=== PATIENT | female | born 1995 | race American Indian/Alaskan Native ===

== ENCOUNTER 2020-04-12 16:24 | Inpatient (IN) | payer MEDICAID, OTHER ==
[2020-04-12 17:17] LABS: Bilirubin,Urine NEG (Negative); Blood,Urine NEG (Negative); Color,Urine Yellow (Yellow); Mucus,Urine 1+ /HPF; Urobilinogen,Urine < 2.0 mg/dL (<2.0)
[2020-04-12 17:21] LABS: HCG Qualitative,Urine Negative (Negative)
[2020-04-12] MEDS ORDERED: ONDANSETRON 4 MG/2 ML INJ IV STA (18:57)
[2020-04-12] MEDS ORDERED: SODIUM CHLORIDE 0.9% 1000 ML 1,000 ML IV ONE (18:57)
[2020-04-12] MEDS ORDERED: MORPHINE 4 MG/1 ML INJ IV STA ×2 (18:57→21:50)
--- NOTE | 2020-04-12 19:03 | Emergency Department Report ---
ED Abdominal Pain HPI - General Chief Complaint: Abdominal Pain Stated Complaint: ABD SHARP PAIN Time Seen by Provider: 04/12/20 18:36 Source: patient Mode of arrival: Wheelchair Limitations: No Limitations - History of Present Illness MD Complaint: abdominal pain Location: RUQ, RLQ Radiation: none, RUQ, RLQ Severity: mild Severity scale (0 -10): 10 Consistency: constant Improves With: nothing Worsens With: nothing Associated Symptoms: nausea. denies: vomiting, diarrhea, constipation, hematuria, anorexia - Related Data Allergies Allergy/AdvReac Type Severity Reaction Status Date / Time No Known Allergies Allergy Unverified 04/12/20 16:37 ED Review of Systems ROS: Stated complaint: ABD SHARP PAIN Other details as noted in HPI Comment: All other systems reviewed and negative ED Past Medical Hx - Past Medical History Previous Medical History?: No - Surgical History Past Surgical History?: No - Social History Smoking Status: Current Every Day Smoker ED Physical Exam - General Limitations: No Limitations General appearance: alert, in no apparent distress - Head Head exam: Present: atraumatic, normocephalic - Eye Eye exam: Present: normal appearance - ENT ENT exam: Present: mucous membranes moist - Neck Neck exam: Present: normal inspection - Respiratory Respiratory exam: Present: normal lung sounds bilaterally. Absent: respiratory distress - Cardiovascular Cardiovascular Exam: Present: regular rate, normal rhythm. Absent: systolic murmur, diastolic murmur, rubs, gallop - GI/Abdominal GI/Abdominal exam: Present: soft, tenderness (There is still tenderness to the right lower quadrant and into the right upper quadrant with palpation. That the abdomen is soft. No distention noted. Bowel sounds positive.), normal bowel sounds. Absent: rebound, rigid, hyperactive bowel sounds, hypoactive bowel sounds, organomegaly, mass - Extremities Exam Extremities exam: Present: normal inspection, full ROM, normal capillary refill - Back Exam Back exam: Present: normal inspection. Absent: CVA tenderness (R), CVA tenderness (L) - Neurological Exam Neurological exam: Present: alert, oriented X3, CN II-XII intact, normal gait - Psychiatric Psychiatric exam: Present: normal affect, normal mood. Absent: anxious, flat affect - Skin Skin exam: Present: warm, dry, intact, normal color. Absent: rash, cyanosis, diaphoretic, erythema ED Course Vital Signs 04/12/20 16:39 Temperature 98.1 F Pulse Rate 96 H Respiratory 22 Rate Blood Pressure 123/77 [Left] O2 Sat by Pulse 100 Oximetry ED Medical Decision Making - Lab Data Result diagrams: 04/12/20 18:55 04/12/20 18:55 - Radiology Data Radiology results: report reviewed Referring Physician:HANNAH COWANPatient Name:KVNG RUDDPatient ID:[id number] of :[id number]:FemaleAccession:[id number] Date:5576-11-57Evizwl Status:Finalized Findings [facility] [address] [id number] Cat Scan Report Signed Patient: KVNG RUDD MR#: [id number] [birth year] : 1995 Acct:[id number] Age/Sex: 25 / F ADM Date: 04/12/20 Loc: ED Attending Dr: Ordering Physician: MAULIK SEWELL Date of Service: 04/12/20 Procedure(s): CT abdomen pelvis wo con Accession Number(s): [id number] cc: MAULIK SEWELL CT OF THE ABDOMEN AND PELVIS WITHOUT CONTRAST INDICATION / CLINICAL INFORMATION: Right lower quadrant pain. TECHNIQUE: All CT scans at this location are performed using CT dose reduction for ALARA by means of automated exposure control. COMPARISON: None available. FINDINGS: ABDOMEN: The liver, spleen, gallbladder, bile ducts, pancreas, adrenal glands and left kidney demonstrate no significant abnormality. There is a 1 mm nonobstructive calculus in the right mid kidney. There is no evidence of bowel obstruction, wall thickening or free air. No adenopathy is identified. There is mild broad-based diastases of the rectus sheath centered at the umbilicus. PELVIS: The appendix is mildly dilated and thick-walled. There is inflammation in the periappendiceal fat. The appendix measures approximately 1 cm transverse. I do not identify an appendicolith. There is no evidence of bowel obstruction, free air or abscess. The distal ureters and urinary bladder are normal. The uterus and adnexal regions are unremarkable. Minimal free fluid in the right cul-de-sac is nonspecific. There is no evidence of diverticulitis. No acute osseous abnormality is seen. IMPRESSION: 1. Acute, uncomplicated appendicitis. 2. Tiny nonobstructive right renal calculus. Signer Name: Harjinder Schilling MD Signed: 04/12/2020 7:39 PM Workstation Name: [id number] Transcribed By: RT Dictated By: Harjinder Schilling MD Electronically Authenticated By: Harjinder Schilling MD Signed Date/Time: 04/12/201938 DD/ 34 TD/TT: - Medical Decision Making This 25-year-old obese -[place] female presents emergency department wit h abdominal pain which appears to be secondary to appendicitis. A CT scan was performed to evaluate the cause of pain and discovered an uncomplicated appendicitis which will require surgical intervention. Her white count is 24.2 and associated with left lower quadrant pain which headache did have some improvement with morphine. She has remained afebrile throughout her hospital visit. No other life threatening processes have been discussed with Dr. Townsend of general surgery who plans to correct this appendiceal issue in the morning. The meantime we will continue with the Zosyn every 6 3.3 or every 8 at 4.5 in conjunction with pain control. We will admit the patient to the hospitalist in the meantime. I discussed the findings with Ms. Rudd and she expressed a clear understanding of the current assessment and the need for admission and surgical intervention. Critical care attestation.: If time is entered above; I have spent that time in minutes in the direct care of this critically ill patient, excluding procedure time. ED Disposition Clinical Impression: Appendicitis Disposition: OP ADMIT IP TO THIS HOSP Is pt being admited?: Yes Does the pt Need Aspirin: No Condition: Stable
--- NOTE | 2020-04-12 19:44 | Cat Scan Report ---
CT OF THE ABDOMEN AND PELVIS WITHOUT CONTRAST INDICATION / CLINICAL INFORMATION: Right lower quadrant pain. TECHNIQUE: All CT scans at this location are performed using CT dose reduction for ALARA by means of automated e xposure control. COMPARISON: None available. FINDINGS: ABDOMEN: The liver, spleen, gallbladder, bile ducts, pancreas, adrenal glands and left kidney demonst rate no significant abnormality. There is a 1 mm nonobstructive calculus in the right mid kidney. The re is no evidence of bowel obstruction, wall thickening or free air. No adenopathy is identified. The re is mild broad-based diastases of the rectus sheath centered at the umbilicus. PELVIS: The appendix is mildly dilated and thick-walled. There is inflammation in the periappendiceal fat. The appendix measures approximately 1 cm transverse. I do not identify an appendicolith. There is no evidence of bowel obstruction, free air or abscess. The distal ureters and urinary bladder are normal. The uterus and adnexal regions are unremarkable. M inimal free fluid in the right cul-de-sac is nonspecific. There is no evidence of diverticulitis. No acute osseous abnormality is seen. IMPRESSION: 1. Acute, uncomplicated appendicitis. 2. Tiny nonobstructive right renal calculus. Signer Name: Harjinder Schilling MD Signed: 04/12/2020 7:39 PM Workstation Name: [id number]
[2020-04-12 19:45] LABS: Mean Corpuscular HGB Conc 30 % (30-34); Platelet Count 407 K/mm3 (140-440); Red Blood Count 4.52 M/mm3 (3.65-5.03); Red Cell Distribution Width 17.1 % (13.2-15.2)
[2020-04-12 19:52] LABS: Alanine Aminotransferase 15 units/L (7-56); Albumin 4.6 g/dL (3.9-5); Blood Urea Nitrogen 12 mg/dL (7-17); Calcium 9.5 mg/dL (8.4-10.2); Hemolysis Index 6
[2020-04-12 19:54] LABS: Hematocrit 29.2 % (30.3-42.9); Hemoglobin 8.6 gm/dl (10.1-14.3); Mean Corpuscular Volume 65 fl (79-97)
[2020-04-12 19:57] LABS: BUN/Creatinine Ratio 17; Bilirubin,Direct < 0.2 mg/dL (0-0.2)
[2020-04-12] MEDS ORDERED: PIPERACILLIN/TAZOBACTAM 3.375 3.375 GM/50 ML BAG IV STA (21:15)
[2020-04-12] MEDS ORDERED: ACETAMINOPHEN 650 MG RECT SUPP PR PRN (22:31)
[2020-04-12] MEDS ORDERED: LACTATED RINGERS 1,000 ML IV SCH (23:00)
[2020-04-13 01:10] LABS: Anisocytosis 1+; Band Neutrophils # (Manual) 0.2 K/mm3; Basophils % (Manual) 0 % (0.0-1.8); Eosinophils % (Manual) 0 % (0.0-4.3); Hypochromasia 1+; Total Cells Counted 100
[2020-04-13 01:11] LABS: Platelet Estimate Consistent w Auto
--- NOTE | 2020-04-13 02:53 | History and Physical Report ---
History of Present Illness Date of examination: 04/12/20 Date of admission: 04/12/20 22:23 Chief complaint: Abdominal Pain History of present illness: 25 year old female presenting with right upper and lower quadrant abdominal pain going on for 24 to 36 hours, pain also radiates to the left lower abdominal quadrant and is associated with chills, nausea and vomitng. but no fever, shortness of breath, diarrhea or constipation. Past History Past Medical History: other (GESTATIONAL DIABETES MELLITUS) Past Surgical History: Social history: no significant social history Family history: no significant family history Medications and Allergies Allergies Allergy/AdvReac Type Severity Reaction Status Date / Time No Known Allergies Allergy Verified 04/12/20 22:36 Active Meds: Active Medications Acetaminophen (Tylenol) 650 mg MD Q4H PRN PRN Reason: Fever >101 Lactated Ringer's (Lactated Ringers) 1,000 mls @ 100 mls/hr IV DIRECT ARNEL Last Admin: 04/13/20 00:48 Dose: 100 mls/hr Documented by: Piperacillin Sod/Tazobactam Sod (Zosyn/Ns 4.5gm/100ml) 4.5 gm in 100 mls @ 200 mls/hr IV Q8HR ARNEL; Protocol Morphine Sulfate (Morphine) 2 mg IV Q3H PRN PRN Reason: Pain, Moderate (4-6) Ondansetron HCl (Zofran) 4 mg IV Q6H PRN PRN Reason: Nausea And Vomiting Review of Systems Constitutional: chills, no weight loss, no weight gain, no fever, no sweats, no night sweats, no anorexia, no fatigue, no weakness, no malaise, no lethargy Eyes: bilateral: other (NO BILATERAL EYE ) Ears, nose, mouth and throat: headache, no ear pain Breasts: deferred Cardiovascular: no chest pain, no lightheadedness, no shortness of breath Respiratory: no cough, no shortness of breath, no dyspnea on exertion Gastrointestinal: abdominal pain, nausea, vomiting, no diarrhea, no constip ation, no change in bowel habits, no hematemesis, no coffee ground emesis, no melena, no hematochezia, no loss of appetite, no early satiety, no heartburn, no indigestion, no belching, no excessive gas, no jaundice, no dyspepsia/bloating, no early satiety Genitourinary Female: no dysuria, no urinary frequency, no urgency Rectal: no pain Integumentary: no rash, no pruritis, no redness, no sores, no wounds Neurological: no numbness, no seizures, no syncope, no tremors, no vertigo, no headaches, no confusion Psychiatric: no anxiety, no depression Endocrine: no cold intolerance, no heat intolerance, no polydipsia, no polyuria Hematologic/Lymphatic: no easy bruising, no lymphadenopathy Exam - Constitutional Vitals: Temp Pulse Resp BP Pulse Ox 98.9 F 65 108 H 129/65 98 04/12/20 23:03 04/12/20 23:03 04/13/20 00:28 04/12/20 23:03 04/12/20 23:03 General appearance: Present: mild distress - EENT Eyes: Present: PERRL, EOM intact ENT: hearing intact, clear oral mucosa, dentition normal - Neck Neck: Present: supple, normal ROM. Absent: enlarged thyroid, carotid bruits - Respiratory Respiratory effort: normal - Cardiovascular Rhythm: regular Heart Sounds: Present: S1 & S2. Absent: gallop, click - Extremities Extremities: no ischemia, No edema Peripheral Pulses: within normal limits - Abdominal General gastrointestinal: Present: soft, tender, non-distended, normal bowel sounds. Absent: non-tender, distended, rigid, hepatomegaly, splenomegaly, mass Female genitourinary: Present: deferred - Rectal Rectal Exam: deferred - Integumentary Integumentary: Present: clear, warm, dry. Absent: jaundice - Musculoskeletal Musculoskeletal: strength equal bilaterally - Psychiatric Psychiatric: appropriate mood/affect HEART Score - HEART Score Risk factors: No known risk factors Troponin: < normal limit - Critical Actions Critical Actions: 0-3 pts:0.9-1.7%risk of adverse cardiac event.Candidate for discharge Results - Labs CBC & Chem 7: 04/12/20 18:55 04/12/20 18:55 Labs: Laboratory Last Values WBC 24.2 K/mm3 (4.5-11.0) H 04/12/20 18:55 RBC 4.52 M/mm3 (3.65-5.03) 04/12/20 18:55 Hgb 8.6 gm/dl (10.1-14.3) L 04/12/20 18:55 Hct 29.2 % (30.3-42.9) L 04/12/20 18:55 MCV 65 fl (79-97) L 04/12/20 18:55 MCH 19 pg (28-32) L 04/12/20 18:55 MCHC 30 % (30-34) 04/12/20 18:55 RDW 17.1 % (13.2-15.2) H 04/12/20 18:55 Plt Count 407 K/mm3 (140-440) 04/12/20 18:55 Add Manual Diff Complete 04/12/20 18:55 Total Counted 100 04/12/20 18:55 Seg Neuts % (Manual) 84.0 % (40.0-70.0) H 04/12/20 18:55 Band Neutrophils % 1.0 % 04/12/20 18:55 Lymphocytes % (Manual) 6.0 % (13.4-35.0) L 04/12/20 18:55 Reactive Lymphs % (Man) 0 % 04/12/20 18:55 Monocytes % (Manual) 9.0 % (0.0-7.3) H 04/12/20 18:55 Eosinophils % (Manual) 0 % (0.0-4.3) 04/12/20 18:55 Basophils % (Manual) 0 % (0.0-1.8) 04/12/20 18:55 Metamyelocytes % 0 % 04/12/20 18:55 Myelocytes % 0 % 04/12/20 18:55 Promyelocytes % 0 % 04/12/20 18:55 Blast Cells % 0 % 04/12/20 18:55 Nucleated RBC % 1.0 % (0.0-0.9) H 04/12/20 18:55 Seg Neutrophils # Man 20.3 K/mm3 (1.8-7.7) H 04/12/20 18:55 Band Neutrophils # 0.2 K/mm3 04/12/20 18:55 Lymphocytes # (Manual) 1.5 K/mm3 (1.2-5.4) 04/12/20 18:55 Abs React Lymphs (Man) 0.0 K/mm3 04/12/20 18:55 Monocytes # (Manual) 2.2 K/mm3 (0.0-0.8) H 04/12/20 18:55 Eosinophils # (Manual) 0.0 K/mm3 (0.0-0.4) 04/12/20 18:55 Basophils # (Manual) 0.0 K/mm3 (0.0-0.1) 04/12/20 18:55 Metamyelocytes # 0.0 K/mm3 04/12/20 18:55 Myelocytes # 0.0 K/mm3 04/12/20 18:55 Promyelocytes # 0.0 K/mm3 04/12/20 18:55 Blast Cells # 0.0 K/mm3 04/12/20 18:55 WBC Morphology Not Reportable 04/12/20 18:55 Hypersegmented Neuts Not Reportable 04/12/20 18:55 Hyposegmented Neuts Not Reportable 04/12/20 18:55 Hypogranular Neuts Not Reportable 04/12/20 18:55 Smudge Cells Not Reportable 04/12/20 18:55 Toxic Granulation Not Reportable 04/12/20 18:55 Toxic Vacuolation Not Reportable 04/12/20 18:55 Dohle Bodies Not Reportable 04/12/20 18:55 Pelger-Huet Anomaly Not Reportable 04/12/20 18:55 Citlali Rods Not Reportable 04/12/20 18:55 Platelet Estimate Consistent w auto 04/12/20 18:55 Clumped Platelets Not Reportable 04/12/20 18:55 Plt Clumps, EDTA Not Reportable 04/12/20 18:55 Large Platelets Not Reportable 04/12/20 18:55 Giant Platelets Not Reportable 04/12/20 18:55 Platelet Satelliting Not Reportable 04/12/20 18:55 Plt Morphology Comment Not Reportable 04/12/20 18:55 RBC Morphology Not Reportable 04/12/20 18:55 Dimorphic RBCs Not Reportable 04/12/20 18:55 Polychromasia Not Reportable 04/12/20 18:55 Hypochromasia 1+ 04/12/20 18:55 Poikilocytosis Not Reportable 04/12/20 18:55 Anisocytosis 1+ 04/12/20 18:55 Microcytosis 1+ 04/12/20 18:55 Macrocytosis Not Reportable 04/12/20 18:55 Spherocytes Not Reportable 04/12/20 18:55 Pappenheimer Bodies Not Reportable 04/12/20 18:55 Sickle Cells Not Reportable 04/12/20 18:55 Target Cells Not Reportable 04/12/20 18:55 Tear Drop Cells Not Reportable 04/12/20 18:55 Ovalocytes Not Reportable 04/12/20 18:55 Helmet Cells Not Reportable 04/12/20 18:55 [place] Bodies Not Reportable 04/12/20 18:55 [place] Rings Not Reportable 04/12/20 18:55 Magdiel Cells Not Reportable 04/12/20 18:55 Bite Cells Not Reportable 04/12/20 18:55 Crenated Cell Not Reportable 04/12/20 18:55 Elliptocytes Not Reportable 04/12/20 18:55 Acanthocytes (Spur) Not Reportable 04/12/20 18:55 Rouleaux Not Reportable 04/12/20 18:55 Hemoglobin C Crystals Not Reportable 04/12/20 18:55 Schistocytes Not Reportable 04/12/20 18:55 Malaria parasites Not Reportable 04/12/20 18:55 Rubne Bodies Not Reportable 04/12/20 18:55 Hem Pathologist Commnt No 04/12/20 18:55 Sodium 139 mmol/L (137-145) 04/12/20 18:55 Potassium 4.4 mmol/L (3.6-5.0) 04/12/20 18:55 Chloride 101.6 mmol/L (98-107) 04/12/20 18:55 Carbon Dioxide 23 mmol/L (22-30) 04/12/20 18:55 Anion Gap 19 mmol/L 04/12/20 18:55 BUN 12 mg/dL (7-17) 04/12/20 18:55 Creatinine 0.7 mg/dL (0.6-1.2) 04/12/20 18:55 Estimated GFR > 60 ml/min 04/12/20 18:55 BUN/Creatinine Ratio 17 % 04/12/20 18:55 Glucose 107 mg/dL (65-100) H 04/12/20 18:55 Calcium 9.5 mg/dL (8.4-10.2) 04/12/20 18:55 Total Bilirubin 0.30 mg/dL (0.1-1.2) 04/12/20 18:55 Direct Bilirubin < 0.2 mg/dL (0-0.2) 04/12/20 18:55 Indirect Bilirubin 0.1 mg/dL 04/12/20 18:55 AST 13 units/L (5-40) 04/12/20 18:55 ALT 15 units/L (7-56) 04/12/20 18:55 Alkaline Phosphatase 86 units/L (35-129) 04/12/20 18:55 Total Protein 8.2 g/dL (6.3-8.2) 04/12/20 18:55 Albumin 4.6 g/dL (3.9-5) 04/12/20 18:55 Albumin/Globulin Ratio 1.3 % 04/12/20 18:55 Lipase 21 units/L (13-60) 04/12/20 18:55 Urine Color Yellow (Yellow) 04/12/20 17:00 Urine Turbidity Slightly-cloudy (Clear) 04/12/20 17:00 Urine pH 9.0 (5.0-7.0) H 04/12/20 17:00 Ur Specific [place] 1.021 (1.003-1.030) 04/12/20 17:00 Urine Protein 30 mg/dl mg/dL (Negative) 04/12/20 17:00 Urine Glucose (UA) Neg mg/dL (Negative) 04/12/20 17:00 Urine Ketones Neg mg/dL (Negative) 04/12/20 17:00 Urine Blood Neg (Negative) 04/12/20 17:00 Urine Nitrite Neg (Negative) 04/12/20 17:00 Urine Bilirubin Neg (Negative) 04/12/20 17:00 Urine Urobilinogen < 2.0 mg/dL (<2.0) 04/12/20 17:00 Ur Leukocyte Esterase Mod (Negative) 04/12/20 17:00 Urine WBC (Auto) 6.0 /HPF (0.0-6.0) 04/12/20 17:00 Urine RBC (Auto) 3.0 /HPF (0.0-6.0) 04/12/20 17:00 U Epithel Cells (Auto) 30.0 /HPF (0-13.0) H 04/12/20 17:00 Urine Mucus 1+ /HPF 04/12/20 17:00 Urine HCG, Qual Negative (Negative) 04/12/20 17:00 Haley/IV: Voiding Method Toilet IV Catheter Type [Left Distal INT / [place] Antecubital] Assessment and Plan - Patient Problems (1) Appendicitis Current Visit: Yes Status: Acute Plan to address problem: 1.MEDICAL/SURGICAL BABIN OBSERVATION 2. NPO 3. CONTINUE SURGICAL CONSULT 4. I.V ZOSYN ANTIBIOTIC 5. I.V MORPHINE FOR PAIN 6.I.V ZOFRAN FOR NAUSEA AND VOMITING 7. I.V LACTATED RINGERS SOLUTION
[2020-04-13] MEDS: MORPHINE 2 MG/1 ML INJ IV PRN ×3 (04:58→21:38)
[2020-04-13] MEDS: PIPERACIL/TAZOBACTA 4.5/NS 100 4.5 GM/100 ML VIAL IV SCH ×3 (05:01→21:25)
[2020-04-13] MEDS ORDERED: PIPERACILLIN/TAZOBACTAM 3.375 3.375 GM/50 ML BAG IV SCH (06:00)
[2020-04-13 07:00] LABS: Hematocrit 26.6 % (30.3-42.9); Hemoglobin 8.1 gm/dl (10.1-14.3); Mean Corpuscular HGB Conc 30 % (30-34); Mean Corpuscular Volume 64 fl (79-97); Platelet Count 342 K/mm3 (140-440); Red Blood Count 4.15 M/mm3 (3.65-5.03); Red Cell Distribution Width 16.7 % (13.2-15.2)
--- NOTE | 2020-04-13 08:52 | Progress Note ---
Assessment and Plan Assessment and plan: -- Appendicitis Current Visit: Yes Status: Acute Plan to address problem: s/p lap appendectomy IV fluids pain medications Clear liquids advance as tolerated per surgery --Leukocytosis Current Visit: Yes Status: Acute . Plan to address problem: Secondary to acute appendicitis Treat underlying cause Closely monitor --Morbid obesity BMI 43.5 Current Visit: Yes Status: Chronic Plan to address problem: Patient needs weight reduction when medically stable Dietary modification, lifestyle adjustments, exercise as tolerated. Weight reduction when medically stable --DVT prophylaxis SCD, no pharmacologic anticoagulation in view of Postop state We will closely monitor the patient and adjust management as needed Follow surgery recommendations Possible discharge tomorrow if stable and cleared by surgery Plan of care reviewed with the patient and her nurse History Interval history: I have seen and examined the patient at the bedside this afternoon Patient's chart and medications reviewed And underwent lap appendectomy today Feels slightly better mild pain at the lap site Vital signs reviewed Hospitalist Physical - Constitutional Vitals: Temp Pulse Resp BP Pulse Ox 98.2 F 66 18 109/53 99 04/13/20 06:28 04/13/20 06:28 04/13/20 06:28 04/13/20 06:28 04/13/20 06:28 General appearance: Present: no acute distress, well-nourished, obese (Morbidly obese) - EENT Eyes: Present: PERRL, EOM intact - Neck Neck: Present: supple, normal ROM - Respiratory Respiratory effort: normal Respiratory: bilateral: diminished, negative: rales, rhonchi, wheezing - Cardiovascular Rhythm: regular Heart Sounds: Present: S1 & S2 - Extremities Extremities: no ischemia, No edema - Abdominal General gastrointestinal: soft, non-distended - Integumentary Integumentary: Present: clear, warm - Psychiatric Psychiatric: appropriate mood/affect, cooperative - Neurologic Neurologic: moves all extremities HEART Score - HEART Score Risk factors: No known risk factors Troponin: < normal limit - Critical Actions Critical Actions: 0-3 pts:0.9-1.7%risk of adverse cardiac event.Candidate for discharge Results - Labs CBC & Chem 7: 04/13/20 06:25 04/12/20 18:55 Labs: Laboratory Last Values WBC 16.9 K/mm3 (4.5-11.0) H 04/13/20 06:25 RBC 4.15 M/mm3 (3.65-5.03) 04/13/20 06:25 Hgb 8.1 gm/dl (10.1-14.3) L 04/13/20 06:25 Hct 26.6 % (30.3-42.9) L 04/13/20 06:25 MCV 64 fl (79-97) L 04/13/20 06:25 MCH 19 pg (28-32) L 04/13/20 06:25 MCHC 30 % (30-34) 04/13/20 06:25 RDW 16.7 % (13.2-15.2) H 04/13/20 06:25 Plt Count 342 K/mm3 (140-440) 04/13/20 06:25 Add Manual Diff Complete 04/12/20 18:55 Total Counted 100 04/12/20 18:55 Seg Neuts % (Manual) 84.0 % (40.0-70.0) H 04/12/20 18:55 Band Neutrophils % 1.0 % 04/12/20 18:55 Lymphocytes % (Manual) 6.0 % (13.4-35.0) L 04/12/20 18:55 Reactive Lymphs % (Man) 0 % 04/12/20 18:55 Monocytes % (Manual) 9.0 % (0.0-7.3) H 04/12/20 18:55 Eosinophils % (Manual) 0 % (0.0-4.3) 04/12/20 18:55 Basophils % (Manual) 0 % (0.0-1.8) 04/12/20 18:55 Metamyelocytes % 0 % 04/12/20 18:55 Myelocytes % 0 % 04/12/20 18:55 Promyelocytes % 0 % 04/12/20 18:55 Blast Cells % 0 % 04/12/20 18:55 Nucleated RBC % 1.0 % (0.0-0.9) H 04/12/20 18:55 Seg Neutrophils # Man 20.3 K/mm3 (1.8-7.7) H 04/12/20 18:55 Band Neutrophils # 0.2 K/mm3 04/12/20 18:55 Lymphocytes # (Manual) 1.5 K/mm3 (1.2-5.4) 04/12/20 18:55 Abs React Lymphs (Man) 0.0 K/mm3 04/12/20 18:55 Monocytes # (Manual) 2.2 K/mm3 (0.0-0.8) H 04/12/20 18:55 Eosinophils # (Manual) 0.0 K/mm3 (0.0-0.4) 04/12/20 18:55 Basophils # (Manual) 0.0 K/mm3 (0.0-0.1) 04/12/20 18:55 Metamyelocytes # 0.0 K/mm3 04/12/20 18:55 Myelocytes # 0.0 K/mm3 04/12/20 18:55 Promyelocytes # 0.0 K/mm3 04/12/20 18:55 Blast Cells # 0.0 K/mm3 04/12/20 18:55 WBC Morphology Not Reportable 04/12/20 18:55 Hypersegmented Neuts Not Reportable 04/12/20 18:55 Hyposegmented Neuts Not Reportable 04/12/20 18:55 Hypogranular Neuts Not Reportable 04/12/20 18:55 Smudge Cells Not Reportable 04/12/20 18:55 Toxic Granulation Not Reportable 04/12/20 18:55 Toxic Vacuolation Not Reportable 04/12/20 18:55 Dohle Bodies Not Reportable 04/12/20 18:55 Pelger-Huet Anomaly Not Reportable 04/12/20 18:55 Citlali Rods Not Reportable 04/12/20 18:55 Platelet Estimate Consistent w auto 04/12/20 18:55 Clumped Platelets Not Reportable 04/12/20 18:55 Plt Clumps, EDTA Not Reportable 04/12/20 18:55 Large Platelets Not Reportable 04/12/20 18:55 Giant Platelets Not Reportable 04/12/20 18:55 Platelet Satelliting Not Reportable 04/12/20 18:55 Plt Morphology Comment Not Reportable 04/12/20 18:55 RBC Morphology Not Reportable 04/12/20 18:55 Dimorphic RBCs Not Reportable 04/12/20 18:55 Polychromasia Not Reportable 04/12/20 18:55 Hypochromasia 1+ 04/12/20 18:55 Poikilocytosis Not Reportable 04/12/20 18:55 Anisocytosis 1+ 04/12/20 18:55 Microcytosis 1+ 04/12/20 18:55 Macrocytosis Not Reportable 04/12/20 18:55 Spherocytes Not Reportable 04/12/20 18:55 Pappenheimer Bodies Not Reportable 04/12/20 18:55 Sickle Cells Not Reportable 04/12/20 18:55 Target Cells Not Reportable 04/12/20 18:55 Tear Drop Cells Not Reportable 04/12/20 18:55 Ovalocytes Not Reportable 04/12/20 18:55 Helmet Cells Not Reportable 04/12/20 18:55 [place] Bodies Not Reportable 04/12/20 18:55 [place] Rings Not Reportable 04/12/20 18:55 Magdiel Cells Not Reportable 04/12/20 18:55 Bite Cells Not Reportable 04/12/20 18:55 Crenated Cell Not Reportable 04/12/20 18:55 Elliptocytes Not Reportable 04/12/20 18:55 Acanthocytes (Spur) Not Reportable 04/12/20 18:55 Rouleaux Not Reportable 04/12/20 18:55 Hemoglobin C Crystals Not Reportable 04/12/20 18:55 Schistocytes Not Reportable 04/12/20 18:55 Malaria parasites Not Reportable 04/12/20 18:55 Ruben Bodies Not Reportable 04/12/20 18:55 Hem Pathologist Commnt No 04/12/20 18:55 Sodium 139 mmol/L (137-145) 04/12/20 18:55 Potassium 4.4 mmol/L (3.6-5.0) 04/12/20 18:55 Chloride 101.6 mmol/L (98-107) 04/12/20 18:55 Carbon Dioxide 23 mmol/L (22-30) 04/12/20 18:55 Anion Gap 19 mmol/L 04/12/20 18:55 BUN 12 mg/dL (7-17) 04/12/20 18:55 Creatinine 0.7 mg/dL (0.6-1.2) 04/12/20 18:55 Estimated GFR > 60 ml/min 04/12/20 18:55 BUN/Creatinine Ratio 17 % 04/12/20 18:55 Glucose 107 mg/dL (65-100) H 04/12/20 18:55 Calcium 9.5 mg/dL (8.4-10.2) 04/12/20 18:55 Total Bilirubin 0.30 mg/dL (0.1-1.2) 04/12/20 18:55 Direct Bilirubin < 0.2 mg/dL (0-0.2) 04/12/20 18:55 Indirect Bilirubin 0.1 mg/dL 04/12/20 18:55 AST 13 units/L (5-40) 04/12/20 18:55 ALT 15 units/L (7-56) 04/12/20 18:55 Alkaline Phosphatase 86 units/L (35-129) 04/12/20 18:55 Total Protein 8.2 g/dL (6.3-8.2) 04/12/20 18:55 Albumin 4.6 g/dL (3.9-5) 04/12/20 18:55 Albumin/Globulin Ratio 1.3 % 04/12/20 18:55 Lipase 21 units/L (13-60) 04/12/20 18:55 Urine Color Yellow (Yellow) 04/12/20 17:00 Urine Turbidity Slightly-cloudy (Clear) 04/12/20 17:00 Urine pH 9.0 (5.0-7.0) H 04/12/20 17:00 Ur Specific [place] 1.021 (1.003-1.030) 04/12/20 17:00 Urine Protein 30 mg/dl mg/dL (Negative) 04/12/20 17:00 Urine Glucose (UA) Neg mg/dL (Negative) 04/12/20 17:00 Urine Ketones Neg mg/dL (Negative) 04/12/20 17:00 Urine Blood Neg (Negative) 04/12/20 17:00 Urine Nitrite Neg (Negative) 04/12/20 17:00 Urine Bilirubin Neg (Negative) 04/12/20 17:00 Urine Urobilinogen < 2.0 mg/dL (<2.0) 04/12/20 17:00 Ur Leukocyte Esterase Mod (Negative) 04/12/20 17:00 Urine WBC (Auto) 6.0 /HPF (0.0-6.0) 04/12/20 17:00 Urine RBC (Auto) 3.0 /HPF (0.0-6.0) 04/12/20 17:00 U Epithel Cells (Auto) 30.0 /HPF (0-13.0) H 04/12/20 17:00 Urine Mucus 1+ /HPF 04/12/20 17:00 Urine HCG, Qual Negative (Negative) 04/12/20 17:00 Haley/IV: Voiding Method Toilet IV Catheter Type [Left Distal INT / Saline Lock Port Antecubital] Active Medications - Current Medications Current Medications: Generic Name Dose Route Start Last Admin Trade Name Freq PRN Reason Stop Dose Admin Acetaminophen 650 mg 04/12/20 22:31 Tylenol [place] Q4H PRN Fever >101 Lactated Ringer's 1,000 mls @ 100 mls/hr 04/12/20 23:00 04/13/20 00:48 Lactated Ringers IV 100 mls/hr DIRECT ARNEL Administration Piperacillin Sod/Tazobactam Sod 4.5 gm in 100 mls @ 200 mls/hr 04/13/20 06:00 04/13/20 05:01 Zosyn/Ns 4.5gm/100ml IV 200 mls/hr Q8HR ARNEL Administration Protocol Morphine Sulfate 2 mg 04/12/20 22:28 04/13/20 04:58 Morphine IV 2 mg Q3H PRN Administration Pain, Moderate (4-6) Ondansetron HCl 4 mg 04/12/20 22:28 Zofran IV Q6H PRN Nausea And Vomiting
--- NOTE | 2020-04-13 09:06 | Anesthesia Consultation ---
Anesthesia Consult and Med Hx Date of service: 04/13/20 - Airway Anesthetic Teeth Evaluation: Good ROM Head & Neck: Adequate Mental/Hyoid Distance: Adequate Mallampati Class: Class II Intubation Access Assessment: Probably Good - Pre-Operative Health Status ASA Pre-Surgery Classification: ASA3, Emergency Proposed Anesthetic Plan: General - Pulmonary Hx Smoking: Yes (2 cig/day) Hx Asthma: No Hx Respiratory Symptoms: No SOB: No COPD: No Home Oxygen Therapy: No Hx Pneumonia: No Hx Sleep Apnea: Yes - Cardiovascular System Hx Hypertension: No Hx Coronary Artery Disease: No Hx Heart Attack/AMI: No Hx Angina: No Hx Percutaneous Transluminal Coronary Angioplasty (PTCA): No Hx Cardia Arrhythmia: No Hx Pacemaker: No Hx Internal Defibrillator: No Hx Valvular Heart Disease: No Hx Heart Murmur: No Hx Peripheral Vascular Disease: No - Central Nervous System Hx Neuromuscular Disorder: No Hx Seizures: No CVA: No Hx Back Pain: No Hx Psychiatric Problems: No - Gastrointestinal Hx Ulcer: No Hx Gastroesophageal Reflux Disease: No - Endocrine Hx Renal Disease: No Hx End Stage Renal Disease: No Hx Cirrhosis: No Hx Liver Disease: No Hx Insulin Dependent Diabetes: No Hx Non-Insulin Dependent Diabetes: No Hx Thyroid Disease: No Hx Hypothyroidism: No Hx Hyperthyroidism: No - Hematic Hx Anemia: No Hx Sickle Cell Disease: No - Other Systems Hx Alcohol Use: Yes (occ.) Hx Substance Use: No Hx Cancer: No Hx Obesity: Yes
--- NOTE | 2020-04-13 09:06 | Anesthesia Day of Surgery ---
Anesthesia Day of Surgery - Day of Surgery Patient Examined: Yes Patient H&P Reviewed: Yes Patient is NPO: Yes
--- NOTE | 2020-04-13 09:08 | Consultation ---
History of Present Illness Consult date: 04/13/20 Reason for consult: abdominal pain Requesting physician: HANNHA COWAN Chief complaint: RLQ pain and swelling - History of present illness History of present illness: 25 year old female presenting with right upper and lower quadrant abdominal pain going on for 24 to 36 hours, pain also radiates to the left lower abdominal quadrant and is associated with chills, nausea and vomitng. but no fever, shortness of breath, diarrhea or constipation. CT scan showed evidence con sistent with acute appendicitis. General surgery was consulted. Past History Past Medical History: other (GESTATIONAL DIABETES MELLITUS) Past Surgical History: Social history: no significant social history Family history: no significant family history Medications and Allergies Allergies Allergy/AdvReac Type Severity Reaction Status Date / Time No Known Allergies Allergy Verified 04/12/20 22:36 Active Meds: Active Medications Acetaminophen (Tylenol) 650 mg [place] Q4H PRN PRN Reason: Fever >101 Lactated Ringer's (Lactated Ringers) 1,000 mls @ 100 mls/hr IV DIRECT ARNEL Last Admin: 04/13/20 00:48 Dose: 100 mls/hr Documented by: Piperacillin Sod/Tazobactam Sod (Zosyn/Ns 4.5gm/100ml) 4.5 gm in 100 mls @ 200 mls/hr IV Q8HR ARNEL; Protocol Last Admin: 04/13/20 05:01 Dose: 200 mls/hr Documented by: Morphine Sulfate (Morphine) 2 mg IV Q3H PRN PRN Reason: Pain, Moderate (4-6) Last Admin: 04/13/20 04:58 Dose: 2 mg Documented by: Ondansetron HCl (Zofran) 4 mg IV Q6H PRN PRN Reason: Nausea And Vomiting Review of Systems - Constitutional chills, no fever, no chronic pain - Cardiovascular no chest pain, no shortness of breath - Respiratory no cough - Gastrointestinal abdominal pain, nausea, vomiting, dyspepsia/bloating, no change in bowel habits - Genitourinary Genitourinary: no dysuria - Integumentary no rash, no sores, no wounds Exam Vital Signs Temp Pulse Resp BP Pulse Ox 98.1 F 96 H 22 123/77 100 04/12/20 16:39 04/12/20 16:39 04/12/20 16:39 04/12/20 16:39 04/12/20 16:39 - General physical appearance Positive: no distress, no pain, obese, other (pleasant, does not appear ill) - Eyes Positive: normal occular movement - Respiratory Positive: normal expansion, normal respiratory effort, clear to auscultation - Cardiovascular Rhythm: regular - Abdomen Abdomen: Present: soft, tender (Significant in the right lower quadrant. Rest of abdomen is benign.), bowel sounds hypoactive, surgical scars (Well-healed C- section scar). Absent: distended, guarding, rigid, wound - Integumentary no rash, no growths, no abnormal pigmentation - Neurologic Neurologic: alert and oriented to time, place and person, motor strength and sensation are grossly intact - Psychiatric Psychiatric: appropriate mood/affect, intact judgment & insight, cooperative Results - Labs 04/13/20 06:25 04/12/20 18:55 Abnormal lab results 04/12/20 04/12/20 04/12/20 Range/Units 17:00 18:55 18:55 WBC 24.2 H (4.5-11.0) K/mm3 Hgb 8.6 L (10.1-14.3) gm/dl Hct 29.2 L (30.3-42.9) % MCV 65 L (79-97) fl MCH 19 L (28-32) pg RDW 17.1 H (13.2-15.2) % Seg Neuts % (Manual) 84.0 H (40.0-70.0) % Lymphocytes % (Manual) 6.0 L (13.4-35.0) % Monocytes % (Manual) 9.0 H (0.0-7.3) % Nucleated RBC % 1.0 H (0.0-0.9) % Seg Neutrophils # Man 20.3 H (1.8-7.7) K/mm3 Monocytes # (Manual) 2.2 H (0.0-0.8) K/mm3 Glucose 107 H (65-100) mg/dL Urine pH 9.0 H (5.0-7.0) U Epithel Cells (Auto) 30.0 H (0-13.0) /HPF 04/13/20 Range/Units 06:25 WBC 16.9 H (4.5-11.0) K/mm3 Hgb 8.1 L (10.1-14.3) gm/dl Hct 26.6 L (30.3-42.9) % MCV 64 L (79-97) fl MCH 19 L (28-32) pg RDW 16.7 H (13.2-15.2) % Seg Neuts % (Manual) (40.0-70.0) % Lymphocytes % (Manual) (13.4-35.0) % Monocytes % (Manual) (0.0-7.3) % Nucleated RBC % (0.0-0.9) % Seg Neutrophils # Man (1.8-7.7) K/mm3 Monocytes # (Manual) (0.0-0.8) K/mm3 Glucose (65-100) mg/dL Urine pH (5.0-7.0) U Epithel Cells (Auto) (0-13.0) /HPF Diabetes panel 04/12/20 Range/Units 18:55 Sodium 139 (137-145) mmol/L Potassium 4.4 (3.6-5.0) mmol/L Chloride 101.6 (98-107) mmol/L Carbon Dioxide 23 (22-30) mmol/L BUN 12 (7-17) mg/dL Creatinine 0.7 (0.6-1.2) mg/dL Glucose 107 H (65-100) mg/dL Calcium 9.5 (8.4-10.2) mg/dL AST 13 (5-40) units/L ALT 15 (7-56) units/L Alkaline Phosphatase 86 (35-129) units/L Total Protein 8.2 (6.3-8.2) g/dL Albumin 4.6 (3.9-5) g/dL Calcium panel 04/12/20 Range/Units 18:55 Calcium 9.5 (8.4-10.2) mg/dL Albumin 4.6 (3.9-5) g/dL Pituitary panel 04/12/20 Range/Units 18:55 Sodium 139 (137-145) mmol/L Potassium 4.4 (3.6-5.0) mmol/L Chloride 101.6 (98-107) mmol/L Carbon Dioxide 23 (22-30) mmol/L BUN 12 (7-17) mg/dL Creatinine 0.7 (0.6-1.2) mg/dL Glucose 107 H (65-100) mg/dL Calcium 9.5 (8.4-10.2) mg/dL Adrenal panel 04/12/20 Range/Units 18:55 Sodium 139 (137-145) mmol/L Potassium 4.4 (3.6-5.0) mmol/L Chloride 101.6 (98-107) mmol/L Carbon Dioxide 23 (22-30) mmol/L BUN 12 (7-17) mg/dL Creatinine 0.7 (0.6-1.2) mg/dL Glucose 107 H (65-100) mg/dL Calcium 9.5 (8.4-10.2) mg/dL Total Bilirubin 0.30 (0.1-1.2) mg/dL AST 13 (5-40) units/L ALT 15 (7-56) units/L Alkaline Phosphatase 86 (35-129) units/L Total Protein 8.2 (6.3-8.2) g/dL Albumin 4.6 (3.9-5) g/dL - Imaging CT scan - abdomen: report reviewed, image reviewed CT scan - pelvis: report reviewed, image reviewed Assessment and Plan - Patient Problems (1) Appendicitis Current Visit: Yes Status: Acute Qualifiers: Appendicitis type: acute appendicitis Acute appendicitis type: with localized peritonitis Appendicitis gangrene presence: unspecified whether gangrene present Appendicitis perforation presence: unspecified whether perforation present Appendicitis abscess presence: unspecified whether abscess present Qualified Code(s): K35.30 - Acute appendicitis with localized peritonitis, without perforation or gangrene Plan to address problem: Pt. stable. History, exam, CT scan are consistent with acute appendicitis. Discussed surgery versus medical therapy. Procedure, risk, benefits of laparoscopic appendectomy were discussed. All questions were answered. Patient would like to proceed with surgery. I think that is reasonable. Consent was obtained. We will proceed to the OR this morning. Time=30min
[2020-04-13] MEDS ORDERED: LIDOCAINE (1%) 10 MG/1 ML VIAL 20 ML MDV ONE (09:13)
[2020-04-13] MEDS ORDERED: BUPIVACAINE-EPINEPHRINE/PF 0.5%-1:200,000 (30 ML) VIAL INFILTRATI ONE ×2 (09:13→10:15)
[2020-04-13] MEDS ORDERED: ROCURONIUM 50 MG/5 ML INJ IV ONE (09:26)
[2020-04-13] MEDS ORDERED: NEOSTIGMINE 10MG/10 ML INJ MDV ONE (09:26)
[2020-04-13] MEDS ORDERED: SUCCINYLCHOLINE CHLORIDE 200 MG/10 ML INJ MDV ONE (09:26)
[2020-04-13] MEDS ORDERED: LIDOCAINE MPF (2%) 20 MG/1 ML VIAL 5 ML ONE (09:26)
[2020-04-13] MEDS ORDERED: dexAMETHasone 20 MG/5 ML VIAL ONE (09:26)
[2020-04-13] MEDS ORDERED: PHENYLEPHRINE/NS 1,000 MCG/10 ML SYRINGE (OR USE) IV ONE (09:26)
[2020-04-13] MEDS ORDERED: HYDROmorphone 1 MG/1 ML INJ ONE ×2 (09:26→09:56)
[2020-04-13] MEDS ORDERED: GLYCOPYRROLATE 0.4 MG/2 ML INJ ONE (09:26)
[2020-04-13] MEDS ORDERED: ONDANSETRON 4 MG/2 ML INJ ONE (09:26)
[2020-04-13] MEDS ORDERED: propofoL 200 MG/20 ML VIAL IV ONE (09:27)
[2020-04-13] MEDS ORDERED: MIDAZOLAM 2 MG/2 ML INJ ONE (09:30)
[2020-04-13] MEDS ORDERED: fentaNYL 100 MCG/2 ML INJ ONE (10:10)
[2020-04-13] MEDS ORDERED: LIDOCAINE (1%) 10 MG/1 ML VIAL 20 ML MDV INFILTRATI ONE (10:16)
[2020-04-13] MEDS ORDERED: SODIUM CHLORIDE 0.9% IRR 1,500 ML BOTTLE IR ONE (10:16)
[2020-04-13] MEDS ORDERED: SUGAMMADEX SODIUM 200 MG/2 ML VIAL IV ONE (10:28)
[2020-04-13] MEDS ORDERED: HYDROcodone/ACETAMINOPHEN 5-325 MG TAB PO PRN (10:54)
--- NOTE | 2020-04-13 10:56 | Post Operative Note ---
Date of procedure: 04/13/20 (dictation:[id number]) Pre-op diagnosis: acute appendicits Post-op diagnosis: same Findings: thickened, inflamed distal appendix. no evidence of perforation Procedure: lap appy IVF 1100cc min EBL Anesthesia: GETA Surgeon: KATH CURRY Estimated blood loss: minimal Pathology: list (appendix) Specimen disposition: to lab Condition: stable Disposition: PACU
--- NOTE | 2020-04-13 11:53 | Post Anesthesia Evaluation ---
- Post Anesthesia Evaluation Patient Participated: Yes Airway Patent: Yes Stable Respiratory Function: Yes Nausea/Vomiting: No Temp > 96.8F: Yes Pain Manageable: Yes Adequeate Hydration: Yes Anesthesia Complications: No Block Receding Appropriately: Not Applicable Patient on Ventilator: No
[2020-04-13] MEDS: KETOROLAC 30 MG/1 ML INJ IV SCH ×2 (13:26→18:07)
--- NOTE | 2020-04-13 13:46 | Operative Report ---
PREOPERATIVE DIAGNOSIS: Acute appendicitis. POSTOPERATIVE DIAGNOSIS: Acute appendicitis. PROCEDURE: Laparoscopic appendectomy. ATTENDING PHYSICIAN: Carey Townsend MD ANESTHESIA: General. ESTIMATED BLOOD LOSS: Minimal. FLUIDS: 1100 mL. FINDINGS: Mildly inflamed and thickened appendix, primarily on the distal end. No evidence of any perforation. There was no purulent fluid in the vicinity. SPECIMENS: Appendix. DRAINS: None. COMPLICATIONS: None. DISPOSITION: Stable, transferred to Recovery Room. INDICATIONS: This is a 25-year-old female who presented with worsening abdominal pain. CT scan showed evidence consistent with acute appendicitis. The patient is assessed to be need for surgery. Procedure, risks, benefits were explained to the patient. Risks include but were not limited to infection, bleeding, pain, injury to surrounding structures, possible need for further procedures in the future. The patient understood and consented. OPERATIVE NOTE: The patient was brought to the operating room and placed on the table in supine position. After adequate general anesthesia was established, the patient was prepped and draped in the usual sterile fashion. SCDs were in place. The patient was already on antibiotics. Timeout was called. I began by placing a Veress needle in left upper quadrant. I was able to insufflate the abdomen in first attempt. A 5 mm port was placed in the left lower quadrant using the Optiview technique. I entered the peritoneal cavity safely. There was no injury underneath the Veress needle. Veress needle was removed. We then placed a 12 mm port at the umbilicus and a 5 mm port in the suprapubic position. All were done under direct vision. We identified the appendix, dissected out the base and divided the mesoappendix with the LigaSure device. We then divided the base with the laparoscopic 45 mm stapler using a blue load. Staple line was flushed with the cecum and hemostatic. Specimen was placed in EndoCatch bag. We examined the surgery site. Everything looked very good. We then removed the EndoCatch bag from the umbilical port site. We closed that fascia with a Babak-[place] fascial closure device using a 2-0 Prolene stitch. Everything looked good. We had no concerns. Abdomen was desufflated. Ports were removed. Additional local was injected into all the port sites. Skin was closed with 4-0 Monocryl subcuticular stitches. Skin was cleaned and dried. Dermabond was placed. The patient tolerated the procedure well. There were no complications. All counts were correct at the end of the case. JOB# [id number] GAGAN/REGINALD
[2020-04-13] MEDS: ONDANSETRON 4 MG/2 ML INJ IV PRN (21:42)
[2020-04-14] MEDS: KETOROLAC 30 MG/1 ML INJ IV SCH ×3 (00:43→11:53)
[2020-04-14] MEDS: MORPHINE 2 MG/1 ML INJ IV PRN (05:39)
[2020-04-14] MEDS: PIPERACIL/TAZOBACTA 4.5/NS 100 4.5 GM/100 ML VIAL IV SCH (06:05)
[2020-04-14] MEDS: ONDANSETRON 4 MG/2 ML INJ IV PRN (06:05)
--- NOTE | 2020-04-14 08:42 | Progress Note ---
Assessment and Plan - Patient Problems (1) Appendicitis Current Visit: Yes Status: Acute Qualifiers: Appendicitis type: acute appendicitis Acute appendicitis type: with localized peritonitis Appendicitis gangrene presence: unspecified whether gangrene present Appendicitis perforation presence: unspecified whether perforation present Appendicitis abscess presence: unspecified whether abscess present Qualified Code(s): K35.30 - Acute appendicitis with localized peritonitis, without perforation or gangrene Plan to address problem: Pt stable. s/p lap appy - POD#1. She is feeling much better. Recommendations: 1. Okay to discharge from surgical standpoint 2. Diet as tolerated 3. Patient should be off of work for 2 weeks. She should follow-up in general surgery clinic in approximately 2 weeks. 4. May shower tomorrow. Pat dry wounds. Please call with any questions Subjective Date of service: 04/14/20 Patient Reports: Positive: no new complaints, feels better, pain is less, tolerating a regular diet. Negative: nausea, vomiting Objective Vital Signs - 12hr 04/13/20 04/14/20 04/14/20 23:02 06:05 07:35 Temperature 98.8 F 98.1 F 98.7 F Pulse Rate 53 L 79 60 Respiratory 18 18 18 Rate Blood Pressure 108/46 110/58 106/57 O2 Sat by Pulse 97 100 100 Oximetry - General physical appearance no distress, no pain, other (looks better) - Respiratory normal expansion, normal respiratory effort - Abdomen soft - Psychiatric oriented to time, oriented to person, oriented to place, speech is normal, memory intact - Labs 04/14/20 08:35 04/14/20 08:35
[2020-04-14 08:51] LABS: Basophils % (Auto) 0.2 % (0.0-1.8); Eosinophils % (Auto) 0.2 % (0.0-4.3); Hematocrit 23.6 % (30.3-42.9); Hemoglobin 7.6 gm/dl (10.1-14.3); Lymphocytes # (Auto) 3.9 K/mm3 (1.2-5.4); Lymphocytes % (Auto) 22.5 % (13.4-35.0); Mean Corpuscular HGB Conc 32 % (30-34); Monocytes # (Auto) 0.9 K/mm3 (0.0-0.8); Monocytes % (Auto) 5.3 % (0.0-7.3); Platelet Count 346 K/mm3 (140-440); Red Blood Count 3.77 M/mm3 (3.65-5.03)
[2020-04-14 08:55] LABS: Mean Corpuscular Volume 63 fl (79-97)
[2020-04-14 09:14] LABS: Blood Urea Nitrogen 7 mg/dL (7-17); Calcium 9.2 mg/dL (8.4-10.2); Hemolysis Index 0
[2020-04-14 09:15] LABS: BUN/Creatinine Ratio 10
[2020-04-14 11:31] VITALS: BP 105/45
--- NOTE | 2020-04-14 13:35 | Discharge Summary ---
Providers - Providers Date of Admission: 04/12/20 22:23 Date of discharge: 04/14/20 Attending physician: RORY GARCIA 04/12/20 22:24 Consult to Physician [CONS] Urgent Comment: MAULIK Medel spoke with Dr. Townsend @ [phone] Consulting Provider: KATH TOWNSEND Physician Instructions: Reason For Exam: acute appendicitis Primary care physician: [facility] TECHNICIAN Hospitalization Condition: Stable Disposition: DC-01 TO HOME OR SELFCARE Time spent for discharge: 32 min Core Measure Documentation - Palliative Care Palliative Care/ Comfort Measures: Not Applicable - Core Measures Any of the following diagnoses?: none Exam - Constitutional Vitals: Temp Pulse Resp BP Pulse Ox 98.6 F 79 18 105/45 98 04/14/20 11:08 04/14/20 11:08 04/14/20 11:08 04/14/20 11:08 04/14/20 11:08 General appearance: Present: no acute distress, well-nourished - EENT Eyes: Present: PERRL, EOM intact - Neck Neck: Present: supple, normal ROM - Respiratory Respiratory effort: normal Respiratory: bilateral: diminished, negative: rales, rhonchi, wheezing - Cardiovascular Rhythm: regular Heart Sounds: Present: S1 & S2 - Extremities Extremities: no ischemia, No edema - Abdominal General gastrointestinal: Present: soft, non-tender, non-distended, normal bowel sounds - Integumentary Integumentary: Present: clear, warm - Musculoskeletal Musculoskeletal: strength equal bilaterally - Psychiatric Psychiatric: appropriate mood/affect, cooperative - Neurologic Neurologic: CNII-XII intact, moves all extremities Plan Activity: no restrictions Diet: regular Additional Instructions: Diet as tolerated. Patient should be off of work for 2 weeks. Work excuse from 04/15/2020 till 04/28/2020[2 weeks]. follow-up in general surgery clinic in approximately 10 to 14 days. May shower tomorrow. Pat dry wounds. Follow up with: ABHISHEK NAIK MD [Primary Care Provider] - 7 Days KATH TOWNSEND MD [Staff Physician] - 14 Days Prescriptions: HYDROcodone/APAP 5-325 [[place] 5-325 mg TAB] 1 each PO Q8H PRN #21 tablet PRN Reason: Pain, Moderate (4-6)
== END 2020-04-14 16:00 | disposition home or self-care (01) | DRG 342 ==
LOC: ED 16:24 → 3A 22:23 → 3B-SURG 22:58
PROVIDERS: ADMIT Internal Medicine; ATTEND Internal Medicine
PROC: 0DTJ4ZZ Resection of Appendix, Percutaneous Endoscopic Approach (ICD-10-PCS; principal; 2020-04-13)
DX: K35.30 Acute appendicitis with localized peritonitis, without perforation or gangrene (principal); Z68.41 Body mass index [BMI] 40.0-44.9, adult; F17.210 Nicotine dependence, cigarettes, uncomplicated; D72.829 Elevated white blood cell count, unspecified; E66.01 Morbid (severe) obesity due to excess calories
CPT/HCPCS: 36415; 74176; 80048; 80076; 81001; 81025; 83690; 85007; 85025; 85027; 88304; 96365; 96375; 96376; G0378; J0330; J1100; J1170; J1885; J2250; J2270; J2370; J2405; J2543; J2704; J2710; J3010; J7030; J7120

== ENCOUNTER 2020-12-04 09:57 | Emergency (ER) | payer SELFPAY ==
[2020-12-04 10:17] VITALS: BP 133/73
[2020-12-04] MEDS ORDERED: TETRACAINE 0.5% OPHTH SOLN 4ML OU ONE (11:01)
--- NOTE | 2020-12-04 11:26 | Emergency Department Report ---
ED Eye Problem HPI - General Chief complaint: Eye Problems Stated complaint: EYE PAIN/REDNESS Time Seen by Provider: 12/04/20 10:47 Source: patient Mode of arrival: Ambulatory Limitations: No Limitations - History of Present Illness Initial comments: This is a 25-year-old female nontoxic, well nourished in appearance, no acute signs of distress presents to the ED with c/o of left eye redness, itching and crusting that started yesterday. Patient stated symptoms started after she removed her contact lenses. Stated has some burning sensation. Patient denies any trauma to the eye. Denies any foreign body sensation or floaters. Patient denies any eye pain. Patient denies any visual changes or decreased vision. Patient denies any fever, chills, nausea, vomiting, chest pain, breath, headache, stiff neck numbness or tingling. Patient denies any allergies. MD chief complaint: eye redness -: days(s) Onset Description: gradual Location: left eye Place: home If Injury: none Eye Symptoms: burning, redness, itching Severity: mild Consistency: constant Associated Symptoms: none. denies: headache, neck pain, nausea/vomiting, cough, rhinorrhea, fever, shortness of breath Treatments Prior to Arrival: none - Related Data Previous Rx's Medication Instructions Recorded Last Taken Type HYDROcodone/APAP 5-325 [[place] 1 each PO Q8H PRN #21 tablet 04/14/20 Unknown Rx 5-325 mg TAB] Polymyxin B Sulf/Trimethoprim 3 drops OS TID #1 drops 12/04/20 Unknown Rx [Polytrim Eye Drops] Allergies Allergy/AdvReac Type Severity Reaction Status Date / Time No Known Allergies Allergy Verified 12/04/20 10:14 ED Review of Systems ROS: Stated complaint: EYE PAIN/REDNESS Other details as noted in HPI Comment: All other systems reviewed and negative Constitutional: denies: chills, fever Eyes: eye discharge. denies: eye pain, vision change ENT: denies: ear pain, throat pain Respiratory: denies: cough, shortness of breath, wheezing Cardiovascular: denies: chest pain, palpitations Endocrine: no symptoms reported Gastrointestinal: denies: abdominal pain, nausea, diarrhea Genitourinary: denies: urgency, dysuria, discharge Musculoskeletal: denies: back pain, joint swelling, arthralgia Skin: denies: rash, lesions Neurological: denies: headache, weakness, paresthesias Psychiatric: denies: anxiety, depression Hematological/Lymphatic: denies: easy bleeding, easy bruising ED Past Medical Hx - Past Medical History Hx Hypertension: No Hx Heart Attack/AMI: No Hx Congestive Heart Failure: No Hx Diabetes: No Hx Liver Disease: No Hx Renal Disease: No Hx Sickle Cell Disease: No Hx Seizures: No Hx Asthma: No Hx COPD: No - Surgical History Hx Pacemaker: No Hx Internal Defibrillator: No - Social History Smoking Status: Never Smoker Substance Use Type: None - Medications Home Medications: Home Medications Medication Instructions Recorded Confirmed Last Taken Type HYDROcodone/APAP 5-325 [[place] 1 each PO Q8H PRN #21 tablet 04/14/20 Unknown Rx 5-325 mg TAB] Polymyxin B Sulf/Trimethoprim 3 drops OS TID #1 drops 12/04/20 Unknown Rx [Polytrim Eye Drops] ED Physical Exam - General Limitations: No Limitations General appearance: alert, in no apparent distress - Head Head exam: Present: atraumatic, normocephalic - Eye Eye exam: Present: normal appearance, PERRL, EOMI. Absent: scleral icterus, conjunctival injection, nystagmus, periorbital swelling, periorbital tenderness Pupils: Present: normal accommodation - Expanded Eye Exam Expanded Eyelids: Normal Inspection: Left Pupils: Regular, Round: Left Sclera/Conjunctival: Normal Inspection: Left Anterior chamber: Normal Inspection: Left - ENT ENT exam: Present: normal exam, normal orophraynx - Neck Neck exam: Present: normal inspection, full ROM. Absent: lymphadenopathy - Respiratory Respiratory exam: Absent: respiratory distress - Cardiovascular Cardiovascular Exam: Present: regular rate - Extremities Exam Extremities exam: Present: full ROM - Back Exam Back exam: Present: full ROM - Neurological Exam Neurological exam: Present: alert, oriented X3, normal gait - Psychiatric Psychiatric exam: Present: normal affect, normal mood - Skin Skin exam: Present: warm, dry, intact, normal color. Absent: rash - Other Other exam information: Under [place] lamp, I used fluorescein and tetracaine to examine cornea for corneal abrasion or foreign body. There is a positive small corneal abrasion noted to the left cornea. Otherwise no foreign body noted. ED Course Vital Signs 12/04/20 10:15 Temperature 98.4 F Pulse Rate 83 Respiratory 18 Rate Blood Pressure 133/73 O2 Sat by Pulse 100 Oximetry - Reevaluation(s) Reevaluation #1: 12/04/20 11:27 Patient is speaking in full sentences with no signs of distress noted. ED Medical Decision Making - Medical Decision Making 25-year-old female that presents with corneal abrasion. Patient will be discharged with Polytrim. Patient was instructed to follow-up with a camp head counselor doctor in 3-5 days or if symptoms worsen and continue return to emergency room as soon as possible. At time of discharge, the patient does not seem toxic or ill in appearance. No acute signs of distress noted. Patient agrees to discharge treatment plan of care. No further questions noted by the patient. Critical care attestation.: If time is entered above; I have spent that time in minutes in the direct care of this critically ill patient, excluding procedure time. ED Disposition Clinical Impression: Left corneal abrasion Qualifiers: Encounter type: initial encounter Qualified Code(s): S05.02XA - Injury of conjunctiva and corneal abrasion without foreign body, left eye, initial encounter Disposition: DC-01 TO HOME OR SELFCARE Is pt being admited?: No Does the pt Need Aspirin: No Condition: Stable Instructions: Corneal Abrasion Additional Instructions: Follow-up with a camp head counselor doctor in 3-5 days or if symptoms worsen and continue return to emergency room as soon as possible. Prescriptions: Polymyxin B Sulf/Trimethoprim [Polytrim Eye Drops] 3 drops OS TID #1 drops Referrals: PRIMARY MD HEENA [Primary Care Provider] - 3-5 Days OLINDA CHAND MD [Staff Physician] - 3-5 Days Time of Disposition: 13:36
[2020-12-04] MEDS ORDERED: FLUORESCEIN 1 MG STRIP OP ONE (12:44)
== END 2020-12-04 14:05 | disposition home or self-care (01) ==
LOC: ED 09:57
DX: S05.02XA Injury of conjunctiva and corneal abrasion without foreign body, left eye, initial encounter (principal); Z79.899 Other long term (current) drug therapy; X58.XXXA Exposure to other specified factors, initial encounter; Y93.89 Activity, other specified; Y92.89 Other specified places as the place of occurrence of the external cause; Y99.8 Other external cause status
CPT/HCPCS: 99282